=== PATIENT | female | born 1995 | race Two or more races ===

== ENCOUNTER 2020-03-30 23:12 | Emergency (ER) | payer OTHER ==
[~2020-03-30] VITALS: Ht 160 cm; Wt 73.0 kg
--- NOTE | 2020-03-31 00:04 | NUR ---
Patient presents to eR c/o bilat flank pain, abd cramping, nausea, and painful urination. Patient states she has not vomited but is unable to eat. Denies diarrhea. On Thursday patient was urinating frequently and burning with urination. Vaginal bleeding after intercourse on Thursday but has since improved. Patient is in NAD. Respirations even and unlabored.
[2020-03-31] MEDS ORDERED: ACETAMINOPHEN 500 MG TABLET ONE (00:20)
[2020-03-31] MEDS ORDERED: IBUPROFEN 600 MG TABLET ONE (00:20)
[2020-03-31] MEDS ORDERED: ONDANSETRON 2MG/ML, 2ML ONE (00:20)
[2020-03-31] MEDS ORDERED: SODIUM CHLORIDE 0.9% 1,000ML IVBOLUS ONE (00:30)
[2020-03-31] MEDS ORDERED: IBUPROFEN 600 MG TABLET PO ONE (00:30)
[2020-03-31] MEDS ORDERED: ACETAMINOPHEN 500 MG TABLET PO ONE (00:30)
[2020-03-31] MEDS ORDERED: ONDANSETRON 2MG/ML, 2ML IVPush ONE (00:30)
[2020-03-31 00:32] LABS: BASOPHILS % (AUTO) 1 % (0-1); EOSINOPHILS % (AUTO) 0 % (1-7); LYMPHOCYTES % (AUTO) 15 % (22-44); MEAN CORPUSCULAR HEMOGLOBIN 30.3 pg (27.0-34.8); MEAN CORPUSCULAR HGB CONC 33.8 g/dL (32.4-35.8); MEAN PLATELET VOLUME 7.9 fL (7.4-10.4); MONOCYTES % (AUTO) 8 % (2-9); NEUTROPHILS % (AUTO) 77 % (42-75); PLATELET COUNT 388 x10^3/uL (130-400); RED BLOOD COUNT 4.44 x10^6/uL (3.82-5.3); RED CELL DISTRIBUTION WIDTH 12.7 % (9.6-15.2)
[2020-03-31 00:34] LABS: MD NO
[2020-03-31 00:42] LABS: ALBUMIN 4.5 g/dL (3.4-5.0); ANION GAP 4 mmol/L (5-15); CALCIUM 9.4 mg/dL (8.5-10.1); CHLORIDE 105 mmol/L (98-107); CREATININE 0.84 mg/dL (0.55-1.02)
[2020-03-31 01:53] LABS: MICROSCOPIC INDICATED
[2020-03-31] MEDS ORDERED: CEFTRIAXONE PMX 1GM/50ML 50 ML ONE (02:22)
[2020-03-31] MEDS ORDERED: CEFTRIAXONE PMX 1GM/50ML 50 ML IV ONE (02:30)
[2020-03-31 02:54] VITALS: BP 124/82
== END 2020-03-31 02:56 | disposition home or self-care (01) ==
LOC: ED 03-31 02:01
DX: N10 Acute pyelonephritis (principal); E03.9 Hypothyroidism, unspecified; R30.0 Dysuria; R10.9 Unspecified abdominal pain; M54.5 Low back pain
CPT/HCPCS: 36415; 80048; 81001; 81025; 82040; 85025; 87077; 87086; 96374; 96375; 99285; J0696; J2405; J7030; 87186